=== PATIENT | male | born 1960 | race Caucasian/White ===

== ENCOUNTER 2021-04-13 10:09 | Emergency (ER) | payer MEDICARE ==
[~2021-04-13] VITALS: Ht 172.7 cm; Wt 99.8 kg
[2021-04-13 10:45] LABS: BASOPHILS % (AUTO) 0.7 % (0.0-5.0); EOSINOPHILS % (AUTO) 3.3 % (0.0-8.0); LYMPHOCYTES % (AUTO) 18.3 % (21.0-51.0); MEAN CORPUSCULAR HEMOGLOBIN 29.1 pg (27.0-33.0); MEAN CORPUSCULAR HGB CONC 32.7 g/dL (32.0-36.0); MEAN CORPUSCULAR VOLUME 88.9 fL (79-99); NEUTROPHILS % (AUTO) 70.3 % (40.0-77.0); PLATELET COUNT (AUTO) 209 K/uL (130-400); RED BLOOD CELL COUNT(AUTO) 3.71 MIL/uL (4.50-6.20); WHITE BLOOD COUNT (AUTO) 7.3 K/uL (4.8-10.8)
[2021-04-13 10:53] VITALS: BP 162/83
[2021-04-13 10:59] LABS: CREATININE 1.2 mg/dL (0.5-1.5)
[2021-04-13 11:03] LABS: ALBUMIN 3.8 g/dL (3.5-5.0); BILIRUBIN,TOTAL 0.3 mg/dL (0.2-1.0); TOTAL PROTEIN, SERUM 6.7 g/dL (6.0-8.3)
[2021-04-13] MEDS ORDERED: ONDANSETRON 4MG INJ IVP ONE (12:30)
[2021-04-13] MEDS ORDERED: 0.9% NACL 500ML IV.SOLN 500 ML IV ONE (12:30)
[2021-04-13] MEDS ORDERED: FAMOTIDINE 20MG VIAL IV ONE ×2 (12:30→13:35)
[2021-04-13] MEDS ORDERED: MORPHINE 2 MG SYG IVP ONE (12:30)
[2021-04-13] MEDS ORDERED: ASPIRIN 325MG EC TAB PO ONE (12:30)
[2021-04-13 12:41] LABS: INR 0.97 (0.85-1.15); PROTHROMBIN TIME 10.6 SEC (9.6-11.6)
[2021-04-13 12:42] LABS: PARTIAL THROMBOPLASTIN TIME 28.2 SEC (26.3-35.5)
== END 2021-04-13 15:19 | disposition home or self-care (01) ==
LOC: EDH 10:09
DX: J90 Pleural effusion, not elsewhere classified (principal); R07.89 Other chest pain; I11.0 Hypertensive heart disease with heart failure; I25.10 Atherosclerotic heart disease of native coronary artery without angina pectoris; E11.9 Type 2 diabetes mellitus without complications; Z95.0 Presence of cardiac pacemaker; Z88.0 Allergy status to penicillin; Z88.8 Allergy status to other drugs, medicaments and biological substances
CPT/HCPCS: 36415; 71045; 80053; 84484 ×2; 85025; 85378; 85610; 85730; 93005; 96374; 96375; 99285; J2405; J3490

== ENCOUNTER 2021-10-11 04:21 | Emergency (ER) | payer MEDICARE ==
[~2021-10-11 04:21] MED LIST: ATOR10 PO; BREX0.5T PO; BUSP10TA3 PO; METF-446 PO; METO50TA18 PO; PANT40GR PO; QUET400T13 PO; TRAZ-187 PO; ZOLP5TAB8 PO
[2021-10-11 05:38] LABS: BASOPHILS % (AUTO) 0.8 % (0.0-5.0); EOSINOPHILS % (AUTO) 4.9 % (0.0-8.0); HEMATOCRIT 29.3 % (42-54); LYMPHOCYTES % (AUTO) 37.1 % (21.0-51.0); MEAN CORPUSCULAR HEMOGLOBIN 30.8 pg (27.0-33.0); MEAN CORPUSCULAR HGB CONC 34.1 g/dL (32.0-36.0); MEAN CORPUSCULAR VOLUME 90.2 fL (79-99); MONOCYTES % (AUTO) 6.2 % (3.0-13.0); NEUTROPHILS % (AUTO) 50.4 % (40.0-77.0); PLATELET COUNT (AUTO) 325 K/uL (130-400); RED BLOOD CELL COUNT(AUTO) 3.25 MIL/uL (4.50-6.20); RED CELL DISTRIBUTION WIDTH 15.4 % (11.0-15.5); WHITE BLOOD COUNT (AUTO) 7.1 K/uL (4.8-10.8)
[2021-10-11 05:51] LABS: CREATININE 1.2 mg/dL (0.5-1.5); POTASSIUM 3.3 mmol/L (3.5-5.1)
[2021-10-11] MEDS ORDERED: MORPHINE 2 MG SYG IVP ONE (06:00)
[2021-10-11] MEDS ORDERED: ONDANSETRON 4MG INJ IVP ONE (06:00)
[2021-10-11 06:01] LABS: B-TYPE NATRIURETIC PEPTIDE 53 pg/mL (0-100)
[2021-10-11 06:02] LABS: ALBUMIN 2.8 g/dL (3.5-5.0); MAGNESIUM 1.1 mg/dL (1.80-2.40)
[2021-10-11 07:19] LABS: INR 3.5 (0.85-1.15); PROTHROMBIN TIME 35.5 SEC (9.6-11.6)
[2021-10-11 08:56] VITALS: BP 128/69
== END 2021-10-11 09:10 | disposition home or self-care (01) ==
LOC: EDH 04:21
DX: R07.89 Other chest pain (principal); R11.0 Nausea; I11.0 Hypertensive heart disease with heart failure; I50.9 Heart failure, unspecified; E03.9 Hypothyroidism, unspecified; E78.00 Pure hypercholesterolemia, unspecified; F32.A Depression, unspecified; I25.10 Atherosclerotic heart disease of native coronary artery without angina pectoris; K21.9 Gastro-esophageal reflux disease without esophagitis; Z86.73 Personal history of transient ischemic attack (TIA), and cerebral infarction without residual deficits; Z88.0 Allergy status to penicillin; Z95.1 Presence of aortocoronary bypass graft; Z95.2 Presence of prosthetic heart valve
CPT/HCPCS: 99285; 96374; 71045; 96375; 83735; 84484; 80053; 83880; 85025; 85610; 36415; 93005; J2405